=== PATIENT | female | born 1950 | race African-American/Black ===

== ENCOUNTER 2020-09-05 12:57 | Emergency (ER) | payer MEDICARE, MEDICAID ==
[2020-09-05] MEDS ORDERED: cefTRIAXone\\ROCEPHIN 2 GM VIAL ONE (13:17)
[2020-09-05] MEDS ORDERED: Acetaminophen 500 MG TAB ONE (13:17)
[2020-09-05 13:30] LABS: #Lymphocytes 1.8 thou/uL (1.20-3.40); #Monocytes 0.7 thou/uL (0.11-0.59); #Neutrophils 4.5 thou/uL (1.40-6.50); %Basophils 0.1 % (0.0-1.0); %Eosinophils 0.1 % (0.0-10.0); %Lymphocytes 25.4 % (21.0-51.0); %Monocytes 10.4 % (0.0-10.0); %Neutrophils 63.9 % (42.0-75.0); Hemoglobin 13.2 g/dL (12.0-16.0); Mean Corpuscular Volume 87.8 fL (78.0-98.0); Mean Platelet Volume 9.8 fL (7.4-10.4); Platelet Count 162 thou/uL (130-400); Red Blood Cell (RBC) Count 4.54 mill/uL (4.20-5.40)
[2020-09-05 13:40] LABS: Actual Bicarbonate (HCO3a) 24.1 mEq/L (22-28); Analyzer IN Cardio ER; Base Excess (BEa) -0.3 mEq/L (-2.0 to +3.0); CO2 Tension 38.7 mmHg (35.0-45.0); Calcium, Ionized (arterial) 1.01 mmol/L (1.12-1.30); Carboxyhemoglobin (COHb) 0.8 gm% (0.0-3.0); Hemoglobin (Hb) 13.1 g/dL (12.0-16.0); Potassium - ABG Lab 3.62 mmol/L (3.70-5.30); pH, Arterial 7.41 (7.35-7.45)
[2020-09-05 13:41] LABS: PTT 31.4 sec (22.9-36.1); Prothrombin Time 13.2 sec (12.0-14.7)
[2020-09-05 13:42] LABS: D-Dimer Test 0.63 *mcg/mL (0.27-0.43)
[2020-09-05 13:51] LABS: ALT (SGPT) 25 U/L (8-55); AST (SGOT) 39 U/L (5-34); Albumin 3.6 g/dL (3.4-4.8); Alkaline Phosphatase 65 U/L (40-110); Anion Gap 13 mmol/L (10-20); BUN (Urea Nitrogen) 10 mg/dL (9.8-20.1); Bilirubin, Total 0.4 mg/dL (0.2-1.2); Calc. Creatinine Clearance 0 mL/min (70-130); Calcium 7.8 mg/dL (7.8-10.44); Carbon Dioxide 30 mmol/L (23-31); Chloride 99 mmol/L (98-107); Globulin 4.2 g/dL (2.4-3.5); Glucose 174 mg/dL (80-115); Potassium 3.8 mmol/L (3.5-5.1); Protein, Total 7.8 g/dL (5.8-8.1); Sodium 138 mmol/L (136-145)
[2020-09-05 14:06] LABS: Puncture Site RRA
[2020-09-05 14:07] LABS: ALV-art Gradient 90.265 mmHg (0-20)
[2020-09-05 14:31] LABS: Bilirubin Negative (Negative); Blood, Urine Trace (Negative); Glucose, Urine (Dipstick) Negative (Negative); Ketone, Urine Negative (Negative); Leukocyte Moderate (Negative); Nitrite Negative (Negative); Protein, Urine (Dipstick) 30 mg/dL (Neg-Trace); pH, Urine 5.5 (5.0-9.0)
[2020-09-05 14:39] LABS: Clarity Clear (Clear)
[2020-09-05 14:43] LABS: Bacteria/HPF 4+ HPF (None Seen); RBC/HPF 0-3 HPF (0-3); WBC/HPF Greater Than 50 HPF (0-3)
== END 2020-09-05 15:30 | disposition admitted as inpatient to this hospital (09) ==
LOC: ERS 12:57
DX: U07.1 COVID-19 (principal); J12.82 Pneumonia due to coronavirus disease 2019; R09.02 Hypoxemia; D72.829 Elevated white blood cell count, unspecified; R91.8 Other nonspecific abnormal finding of lung field
CPT/HCPCS: 36600; 71045; 71250; 80053; 81003; 81015; 82805; 83605; 84484; 85025; 85379; 85610; 85730; 87040; 87086; 93005; 94760; J0696